=== PATIENT | female | born 1980 | race Caucasian/White ===

== ENCOUNTER → 2016-03-18 | Outpatient (CLI) | payer OTHER ==
--- NOTE | 2016-03-18 18:39 | US ---
March 18, 2016 Dear Elmira Torres CNM, Thank you for allowing me to see your patient Luana Fernandez for anatomy evaluation. A s you know, she is a 35-year-old 2, para 1001, with a dating 19 weeks 1 days. Her due date is 08/11/216 based on LMP. She has no significant medical history. She had reassuring NIPT screening. ULTRASOUND Number of fetuses: 1 presentation: transverse with head on maternal right Maximum vertical pocket: 3.9 cm Placenta - Appearance: Normal - Location: Posterior - Cord insertion: Intraplacental - Placenta previa: None Maternal Structures - Cervix: 5.3 cm measured transabdominally - Uterus: No obvious masses or anomaly seen - The adnexa were evaluated. No pathology was seen. -- Right ovary visualized and appears normal. It measures 2.4 x 1.0 x 1.9 cm -- Left ovary visualized and appears normal. It measures 2.3 x 1.9 x 2.5 cm Measurements Biparietal diameter: 44 mm, 19 weeks 2 days Head circumference: 160 mm, 18 weeks 6 days Abdominal circumference: 136 mm, 19 weeks 1 days Femur length: 29 mm, 18 weeks 6 days Humerus length: 28 mm, 18 weeks 6 days Transcerebellar diameter: 19 mm, 18 weeks 6 days Nasal Bone: 7.3 mm Nuchal Skinfold Thickness: 2.7 mm, Normal Average ultrasound age: 19 weeks 1 days Estimated weight: 267 gm weight percentile: 35 % Anatomy Head and Neck: - Cranial shape and integrity: Normal - Cerebral lateral ventricles: Normal, 5 mm - Choroid plexus: Normal - Midline falx: Normal - Cavum septum pellucidi: Normal - Brain parenchyma: Normal - Cerebellum: Normal - Cisternal Magna: Normal, 3.5 mm - Cerebellar vermis: Normal - Neck: Normal Face: - Upper lip: Normal - Profile: Normal - Coronal face: Normal - Alveolar ridge: Normal Heart: - 4-chamber view: Normal - LVOT: Normal - RVOT: Normal - Aortic arch: Normal - SVC/IVC: Normal - 3 vessel view: Normal - Interventricular septum: Normal - heart rate: 143 bpm Lungs: Normal Diaphragm: Normal Abdomen: - Stomach: Normal - Kidneys: Right: Normal, Left: Normal - Bladder: Normal - Abdominal Cord Insertion: Normal - Umbilical cord vessel number: 3 - Liver: Normal Spine: - Cervical: Normal - Thoracic: Normal - Lumbar: Normal - Sacral: Normal - Shape and curvature: Normal Extremities: - Right upper extremity: Normal architecture and position - Right Hand: Normal - Left upper extremity: Normal architecture and position - Left Hand: Normal - Right lower extremity: Normal architecture and position - Right foot: Normal - Left lower extremity: Normal architecture and position - Left foot: Normal Genitalia: Male Impression: 1. Intrauterine at 19 weeks 1 day(s), ultrasound is consistent with her established CIRA of 08/11/2016. 2. Anatomy: The fetus measures appropriate for gestational age, measuring a normal weight and percen tile. Visualization of the fetus today reveals no overt structural anomalies. There is evidence of no rmal amniotic fluid, and movement was seen during the examination. 3. Cervical length is normal at 5.3 cm without evidence of insufficiency. Recommendations: I was pleased to share today's ultrasound findings with your patient. I will further ultrasound foll ow-up to your clinical discretion. Thank you for allowing us the opportunity to evaluate your patient. Should you have any further ques tions or concerns please do not hesitate to contact me. No E&M for this encounter. Cherri Cortez M.D., Ph.D. [employer] Department of Obstetrics and Gynecology [facility]
--- NOTE | 2016-03-22 17:29 | US ---
OB SONOGRAM HISTORY: 19 weeks 1 day, second trimester evaluation, check growth and anatomy, CIRA August 11, 2016 COMPARISON: None FINDINGS: There is a single viable intrauterine gestation in transverse lie with the head on th e maternal right. The placenta is posterior without previa. The umbilical cord inserts into the centr al placenta. Maximum amniotic fluid pocket = 4 cm. Both maternal ovaries are visible and are normal. The cervix is closed measuring 4.3 cm transabdominally. The intracranial contents, visualized face and spine look normal. The heart i s 4 chambered with an intact interventricular septum and normal right and left ventricular outflow tr act. heart rate = 1 43 bpm. Fluid is identified in the stomach and urinary bladder. The renal region looks normal. The umbilical cord has 3 vessels and a normal insertion s ite. 4 extremities are visualized. BPD = 44 mm = 19 weeks 2 days Head circumference = 160 mm = 18 weeks 6 days Abdominal circumference = 136 mm = 19 weeks 1 day Femur length = 29 mm = 18 weeks 6 days Humeral length = 28 mm = 18 weeks 6 days Cerebellar width = 19 mm = 18 weeks 6 days Cisterna magna = 3.5 mm Estimated weight = 35 percentile Gestational age by ultrasound = 19 weeks 1 day CIRA by ultrasound = August 11, 2016 Impression: 1. The fetus is in transverse lie. 2. Size consistent with dates. 3. No anatomical abnormality identified. This report should be read in conjunction with a consultation by Dr. Cherri Cortez
== END ==
LOC: FIMAGING 10:41
PROVIDERS: ATTEND Advanced Practice Midwife
DX: Z34.92 Encounter for supervision of normal pregnancy, unspecified, second trimester (principal); Z3A.19 19 weeks gestation of pregnancy